=== PATIENT | female | born 1985 | race Caucasian/White ===

== ENCOUNTER 2017-08-09 21:26 | Emergency (ER) | payer OTHER ==
[~2017-08-09] VITALS: Ht 162.6 cm; Wt 65.8 kg
[~2017-08-09 21:26] MED LIST: PROTONIX20 MG PO; ZOFRAN SL
== END 2017-08-09 23:55 | disposition home or self-care (01) ==
LOC: ER 21:26
DX: S61.452A Open bite of left hand, initial encounter (principal); W54.0XXA Bitten by dog, initial encounter; Y93.89 Activity, other specified; Y92.89 Other specified places as the place of occurrence of the external cause; Y99.8 Other external cause status

== ENCOUNTER 2018-10-29 11:05 | Inpatient (IN) | payer OTHER ==
[~2018-10-29] VITALS: Ht 162.6 cm; Wt 79.8 kg
[2018-11-24] MEDS ORDERED: PRENATAL TABLE1 EAC1 PO (08:16)
== END 2018-11-26 12:22 | disposition home or self-care (01) | DRG 807 ==
LOC: OB/GYN 11-04 15:00 → LDR 11-24 06:57 → OB/GYN 11-24 06:57 → LDR 11-24 08:14 → OB/GYN 11-24 22:37
PROVIDERS: ADMIT Obstetrics & Gynecology Maternal & Fetal Medicine
PROC: 10E0XZZ Delivery of Products of Conception, External Approach (ICD-10-PCS; principal; 2018-11-24)
PROC: 0HQ9XZZ Repair Perineum Skin, External Approach (ICD-10-PCS; 2018-11-24)
PROC: 4A1HXCZ Monitoring of Products of Conception, Cardiac Rate, External Approach (ICD-10-PCS; 2018-11-24)
PROC: 4A033R1 Measurement of Arterial Saturation, Peripheral, Percutaneous Approach (ICD-10-PCS; 2018-11-24)
DX: O70.0 First degree perineal laceration during delivery (principal); Z37.0 Single live birth; Z3A.40 40 weeks gestation of pregnancy

== ENCOUNTER 2018-11-18 09:12 | Outpatient (CLI) | payer OTHER | END 2018-11-18 10:01 | disposition home or self-care (01) | LOC: NST 09:12 | DX: Z34.83 Encounter for supervision of other normal pregnancy, third trimester (principal) ==

== ENCOUNTER 2018-11-23 10:29 | Outpatient (CLI) | payer OTHER ==
[2018-11-24] MEDS ORDERED: PRENATAL TABLE1 EAC1 PO (08:16)
== END 2018-11-23 11:03 | disposition home or self-care (01) ==
LOC: NST 10:29
DX: Z34.83 Encounter for supervision of other normal pregnancy, third trimester (principal)

== ENCOUNTER 2020-08-21 15:00 | Inpatient (IN) | payer OTHER ==
[~2020-08-21] VITALS: Ht 162.6 cm; Wt 83.5 kg
[~2020-08-21 15:00] MED LIST changes: +PRENATAL TABLE1 EAC1 PO
== END 2020-09-05 10:42 | disposition home or self-care (01) | DRG 807 ==
LOC: SURG-SUITE 09-03 06:19 → LDR 09-03 06:19 → SURG-SUITE 09-03 15:59 → LDR 09-06 15:00
PROVIDERS: ADMIT Obstetrics & Gynecology Maternal & Fetal Medicine; ATTEND Obstetrics & Gynecology Maternal & Fetal Medicine
PROC: 10E0XZZ Delivery of Products of Conception, External Approach (ICD-10-PCS; principal; 2020-09-03)
PROC: 0HQ9XZZ Repair Perineum Skin, External Approach (ICD-10-PCS; 2020-09-03)
PROC: 3E033VJ Introduction of Other Hormone into Peripheral Vein, Percutaneous Approach (ICD-10-PCS; 2020-09-03)
PROC: 4A1HXFZ Monitoring of Products of Conception, Cardiac Rhythm, External Approach (ICD-10-PCS; 2020-09-03)
DX: O70.0 First degree perineal laceration during delivery (principal); Z37.0 Single live birth; Z3A.39 39 weeks gestation of pregnancy; Z20.822 Contact with and (suspected) exposure to COVID-19

== ENCOUNTER 2022-05-19 03:43 | Emergency (ER) | payer OTHER ==
[~2022-05-19] VITALS: Ht 162.6 cm; Wt 79.4 kg
== END 2022-05-19 09:08 | disposition home or self-care (01) ==
LOC: ER 03:43
DX: K52.9 Noninfective gastroenteritis and colitis, unspecified (principal)